=== PATIENT | male | born 1965 | race Caucasian/White ===

== ENCOUNTER 2022-04-21 01:19 | Emergency (ER) | payer BC, SELFPAY ==
[2022-04-21 01:28] VITALS: BP 139/83; PULSE 91; RESP 18; TEMP 36.6; O2SAT 96; BMI 31.1
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
[2022-04-21 02:28] VITALS: RESP 18
[2022-04-21] MEDS: HYDROmorphone 1 mg/mL INJ 1 mL IVP (02:28)
[2022-04-21] MEDS: ondansetron 2 mg/ML SDV 2 mL 4 MG IVP (02:29)
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
[2022-04-21 03:52] VITALS: RESP 18; O2SAT 96
[2022-04-21] MEDS: oxyCODONE-APAP 5-325 mg Tablet 2 TAB PO (03:52)
[2022-04-21 03:56] VITALS: BP 126/76; PULSE 77; RESP 17; TEMP 36.6; O2SAT 97
== END 2022-04-21 04:04 | disposition home or self-care (01) ==
PROVIDERS: Emergency Provider Emergency Medicine
DX: S82.201A Unspecified fracture of shaft of right tibia, initial encounter for closed fracture (principal); V86.95XA Unspecified occupant of 3- or 4- wheeled all-terrain vehicle (ATV) injured in nontraffic accident, initial encounter
CPT/HCPCS: 29505; 73590; 73610; 96374; 96375; 99284; E0114; J1170; J2405